=== PATIENT | male | born 1965 | race Caucasian/White ===

== ENCOUNTER → 2018-08-10 08:34 | Day surgery (SDC) | payer BC ==
[~2018-08-10 08:34] MED LIST: Buffered Lidocaine 1% SYRIN* 1 ML/SYRINGE INTRADERM ONE; Bupivacaine 0.25% SDV PF* 10 ML VIAL INJ ONE; Dexamethasone IV* 4 MG/ML 1 ML (4 MG) ONE; EPHEDrine (Pressors)* 50 MG/ML VIAL ONE; Famotidine IV* 10 MG/ML 2 ML (20 mg) IV ONE; Famotidine IV* 10 MG/ML 2 ML (20 mg) ONE; Ketorolac INJ* 30 MG/ML 1 ML VIAL ONE; Lactated Ringers 1000 ML Bag* 1,000 ML IV SCH; Lidocaine 2% PF * 5 ML VIAL ONE; Midazolam* 1 MG/ML 5 ML VIAL (5 MG) ONE; Naloxone* 0.4 MG/ML 1 ML VIAL IV PRN; Ondansetron INJ* 2 MG/ML VIAL IV PRN; Ondansetron INJ* 2 MG/ML VIAL ONE; Propofol* 10 MG/ML 20 ML BTL ONE; ceFAZolin 2 GM PREMIX in ORs 2 GM/50 ML BAG IVPB ONE; fentaNYL* 50 MCG/ML 2 ML VIAL (100 MCG VIAL) IV PRN; fentaNYL* 50 MCG/ML 2 ML VIAL (100 MCG VIAL) ONE; oxyCODONE/Acetamin 5/325 MG* TAB PO PRN
[2018-08-10 13:33] VITALS: BP 128/76
--- NOTE | 2018-08-10 18:35 | OP ---
DATE OF OPERATION: 08/10/18 - [facility] DATE OF : 63 SURGEON: Eduardo Moseley MD EDUCATIONAL THERAPY TEACHER: VANI Gonzalez. An assistant vice president was needed for the entirety of the procedure to aid in positioning of the arm and retraction. ANESTHESIOLOGIST: Dr. Monteiro. ANESTHESIA: General. 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 OPERATIVE PROCEDURE: Excision of left ring finger and palm Dupuytren disease. INDICATIONS: Aiden has the Dupuytren disease. It is quite severe. It is affecting the ring finger. Remainder of the fingers are relatively well spared. I had offered him Xiaflex. He was not interested in that due to a severe fear of needles and wanted surgical excision. We discussed risks and benefits and he wanted to proceed. ESTIMATED BLOOD LOSS: 2 mL. COMPLICATIONS: None. FINDINGS: See above and below. DESCRIPTION OF PROCEDURE: Aiden was seen in the preoperative holding area. The correct site, side, and procedure were identified. We came back to the operating room where the arm was prepped and draped in the usual fashion and time-out was performed. The arm was exsanguinated with the Esmarch and the tourniquet was inflated to 225 mmHg. The hand was positioned in the lead hand. I made a longitudinal incision overlying the cord starting near the distal aspect of the carpal tunnel and running down onto the finger. Dissection was carried down. Full- thickness flaps were raised off of the cord. The cord was released proximally. I carefully dissected out the digital nerves releasing the vertical septi and tracing this all the way out, there was quite a bit of disease involving the fourth webspace. The proper digital nerves to both fingers were dissected free. I then traced cord out onto the ring finger. There was a central and a retrovascular component and the cord was enveloping the entirety of the digital nerve over the entirety of the proximal phalanx and PIP joint area. This took quite some time as I was able to dissect it all free preserving the nerve and digital artery. The retrovascular cord was excised in its entirety. There was quite a bit of disease more radially as well, so I went ahead and dissected out the radial neurovascular bundle, excised all the Dupuytren's tissue in both the palm and down onto the finger. When I was done, I released the contracture at the MP joint and at the PIP joint. I could hyperextend the MP joint and I could extend to neutral the PIP joint, which was the same as the other fingers. I went ahead and closed the skin by raising multiple Z-plasties at each flexion crease, 2 to 3 in the palm and at the MP and PIP joint flexion creases. Skin came together nicely, was much more loose and looked a lot better after the Z- plasties. After the wounds were all closed, I infiltrated Marcaine all around the operative area. The wounds were dressed. and a short arm splint out to the fingertips with the MP joints and PIP joints in extension was applied. Tourniquet was deflated during splint placement and the finger pinked up immediately. He was taken to the recovery in stable condition. [id number]/[facility] #: [id number] [place]
== END | disposition home or self-care (01) ==
LOC: OREAST 08:34
PROVIDERS: ATTEND Orthopaedic Surgery Hand Surgery
DX: M72.0 Palmar fascial fibromatosis [Dupuytren] (principal); F41.8 Other specified anxiety disorders; Z72.0 Tobacco use
CPT/HCPCS: 88304; J0690; J1100; J1885; J2250; J2405; J2704; J3010; J3490